=== PATIENT | male | born 1965 | race Caucasian/White ===

== ENCOUNTER 2016-11-23 14:46 | Emergency (ER) | payer OTHER ==
[2016-11-23 15:12] VITALS: BP 128/70; PULSE 67; TEMP 98.6; BMI 25.9
--- NOTE | 2016-11-23 16:37 | PDOC ---
History of Present Illness - General Chief Complaint: Injury Stated Complaint: FALL/ RT LEG PAIN Time Seen by Provider: 11/23/16 16:29 History Source: Patient Exam Limitations: No Limitations - History of Present Illness Initial Comments: 11/23/16 17:10 My chief complaint: Fall into a hole at work yesterday right knee pain right ankle and left elbow abrasion History of present illness: Patient is a 51-year-old male with a history of non- insulin-dependent diabetes, here today complaining of right knee pain since falling into a hole at work yesterday. Patient reports is difficult to walk due to pain pain is currently a 10 on applying any pressure on his knee. Patient has minimal tenderness to his right ankle with a tiny abrasion and an abrasion to his left elbow. Patient denies any pain of his left elbow. Patient is unsure of his tetanus status. Patient denies any other injuries. Occurred: reports: yesterday Severity: reports: severe (right knee) Pain Location: reports: lower extremity (rt. knee ), upper extremity (left elbow abrasion, rt. medial ankle abrasion ) Method of Injury: Yes: fall Modifying Factors: improves with: immobilization Loss of Consciousness: no loss of consciousness Associated Symptoms (Fall): trouble walking Past History - Past Medical History Allergies/Adverse Reactions: Allergies Allergy/AdvReac Type Severity Reaction Status Date / Time No Known Allergies Allergy Verified 11/23/16 15:08 Home Medications: Ambulatory Orders Naproxen [Naprosyn -] 500 mg PO BID PRN #14 tablet 11/23/16 Diabetes: Yes - Surgical History Appendectomy: Yes - Immunization History Immunization Up to Date: Yes - Suicide/Smoking/Psychosocial Hx Smoking History: Never smoked Hx Alcohol Use: No Drug/Substance Use Hx: No Review of Systems - Review of Systems Able to Perform ROS?: Yes Constitutional: No: Symptoms Reported HEENTM: No: Symptoms Reported Respiratory: No: Symptoms reported Cardiac (ROS): No: Symptoms Reported ABD/GI: No: Symptoms Reported : No: Symptoms Reported Musculoskeletal: Yes: Joint Pain (right knee severe, rt. ankle minimal) Integumentary: Yes: Other (left elbow abrasion, rt. medial ankle ) Neurological: No: Symptoms reported *Physical Exam - Vital Signs Last Vital Signs Temp Pulse Resp BP Pulse Ox 98.6 F 67 18 128/70 100 11/23/16 14:50 11/23/16 14:50 11/23/16 14:50 11/23/16 14:50 11/23/16 14:50 - Physical Exam General Appearance: Yes: Appropriately Dressed Respiratory/Chest: positive: Lungs Clear, Normal Breath Sounds. negative: Chest Tender, Respiratory Distress Cardiovascular: positive: Regular Rhythm, Regular Rate, S1, S2 Vascular Pulses: Dorsalis-Pedis (R): 4+, Doralis-Pedis (L): 4+ Comments:: 11/23/16 17:07 radial pulse 4 + left Extremity: positive: Normal Capillary Refill, Normal Inspection, Normal Range of Motion (right ), Tender (rt. knee, negative anterior/posterior drawer, negative rt. ciaran). negative: Swelling (rt. knee, rt. ankle, foot ) Integumentary: positive: Other (abrasion left elbow quarter size, pea size rt. medial ankle ) Neurologic: positive: Normal Response, Respond to painful stimul Procedures - Consent Consent obtained: From Patient - Splinting Pre-Made Type: knee immobilizer (right) Post-Proc Neuro Vasc Exam: normal Complications: No Medical Decision Making - Medical Decision Making 11/23/16 17:12 Patient is a 51-year-old male with a history of egi-vfouilj-xkjrxnlre diabetes , here today complaining of right knee pain since falling into a hole at work yesterday. Patient reports is difficult to walk due to pain pain is currently a 10 on applying any pressure on his knee. Patient has minimal tenderness to his right ankle with a tiny abrasion and an abrasion to his left elbow. Patient denies any pain of his left elbow. Patient is unsure of his tetanus status. Patient denies any other injuries. Fall Right knee pain severe rt. ankle mild pain left elbow abrasion rt. medial ankle abrasion PLAN: xray rt. knee TDAP 0.5 ML IM cleansed the right ankle/left elbow with Betadine and normal saline tiny amount of bacitracin applied and Band-Aid ibuprofen 600 mg po now rt. knee immoblilzer crutches ortho consult 11/23/16 18:24 Naprosyn 500 mg bid prn pain *DC/Admit/Observation/Transfer Diagnosis at time of Disposition: Fall Qualifiers: Encounter type: initial encounter Qualified Code(s): W19.XXXA - Unspecified fall, initial encounter Acute knee pain Qualifiers: Laterality: right Qualified Code(s): M25.561 - Pain in right knee Abrasion of left elbow Qualifiers: Encounter type: initial encounter Qualified Code(s): S50.312A - Abrasion of left elbow, initial encounter Abrasion of right ankle Qualifiers: Encounter type: initial encounter Qualified Code(s): S90.511A - Abrasion, right ankle, initial encounter - Discharge Dispostion Disposition: HOME Condition at time of disposition: Stable - Prescriptions Prescriptions: Naproxen [Naprosyn -] 500 mg PO BID PRN #14 tablet PRN Reason: Pain - Referrals Referrals: Andreas Pate MD [Staff Physician] - - Patient Instructions Additional Instructions: Wear knee immobilizer right knee on in the day take off at night and use crutches for ambulation Elevate your right leg as much as possible and apply ice every 2 hours for 20 minutes each time cleanse abrasion on left elbow and right ankle area twice daily with antibacterial soap and water pat dry and apply bacitracin ointment Follow-up with orthopedist tomorrow Patient voiced understanding of discharge instructions and all questions were answered - Post Discharge Activity Forms/Work/School Notes: Back to Work
[2016-11-23] MEDS ORDERED: IBUPROFEN 600 MG TABLET (FP) PO ONE ×2 (17:03→17:06)
[2016-11-23] MEDS ORDERED: DIPHTH,PERTUSS(ACELL),TET 0.5 ML DISP.SYRIN IM ONE (17:09)
== END 2016-11-23 18:44 | disposition home or self-care (01) ==
LOC: JERFT 14:46
PROC: 2W3RX1Z Immobilization of Left Lower Leg using Splint (ICD-10-PCS; principal; 2016-11-23)
DX: S50.312A Abrasion of left elbow, initial encounter (principal); S90.511A Abrasion, right ankle, initial encounter; M25.561 Pain in right knee; W17.89XA Other fall from one level to another, initial encounter; Y93.89 Activity, other specified; Y92.9 Unspecified place or not applicable; Y99.0 Civilian activity done for income or pay
CPT/HCPCS: 73562-TC-RT; 90715; 99281-25

== ENCOUNTER 2018-03-10 00:48 | Emergency (ER) | payer OTHER ==
[2018-03-10] MEDS ORDERED: ACETAMINOPHEN 1000 MG/100 ML VIAL (NON FORMULARY) IVPB ONE (02:00)
[2018-03-10] MEDS ORDERED: SODIUM CHLORIDE 1,000 ML IV STA (02:00)
--- NOTE | 2018-03-10 02:00 | PDOC ---
History of Present Illness - General Chief Complaint: Pain, Acute Stated Complaint: ABDOMINAL PAIN Time Seen by Provider: 03/10/18 01:31 History Source: Patient Exam Limitations: No Limitations Past History - Travel Traveled outside of the country in the last 30 days: No Close contact w/someone who was outside of country & ill: No - Past Medical History Allergies/Adverse Reactions: Allergies Allergy/AdvReac Type Severity Reaction Status Date / Time No Known Allergies Allergy Verified 03/10/18 01:38 Home Medications: Ambulatory Orders Naproxen [Naprosyn -] 500 mg PO BID PRN #14 tablet 11/23/16 Cyclobenzaprine HCl [Flexeril -] 10 mg PO HS #10 tablet 03/10/18 traMADol HCL [Ultram -] 50 mg PO BID #10 tablet MDD 2 03/10/18 Diabetes: Yes - Surgical History Appendectomy: Yes - Immunization History Immunization Up to Date: Yes - Suicide/Smoking/Psychosocial Hx Smoking History: Never smoked Hx Alcohol Use: No Drug/Substance Use Hx: No Review of Systems - Review of Systems Able to Perform ROS?: Yes Comments:: 03/10/18 01:57 CONSTITUTIONAL: Absent: fever, chills, diaphoresis, generalized weakness, malaise, loss of appetite HEENT: Absent: rhinorrhea, nasal congestion, throat pain, throat swelling, difficulty swallowing, mouth swelling, ear pain, eye pain, visual Changes CARDIOVASCULAR: Absent: chest pain, loss of consciousness, palpitations, irregular heart rate, peripheral edema RESPIRATORY: Absent: cough, shortness of breath, dyspnea with exertion, orthopnea, wheezing, stridor, hemoptysis GASTROINTESTINAL: Absent: abdominal pain, abdominal distension, nausea, vomiting, diarrhea, constipation, melena, hematochezia GENITOURINARY: Absent: dysuria, frequency, urgency, hesitancy, hematuria, flank pain, genital pain MUSCULOSKELETAL: Absent: myalgia, arthralgia, joint swelling SKIN: Absent: rash, itching, pallor HEMATOLOGIC/IMMUNOLOGIC: Absent: easy bleeding, easy bruising, lymphadenopathy, frequent infections ENDOCRINE: Absent: unexplained weight gain, unexplained weight loss, heat intolerance, cold intolerance NEUROLOGIC: Absent: headache, focal weakness or paresthesias, dizziness, unsteady gait, seizure, mental status changes, bladder or bowel incontinence PSYCHIATRIC: Absent: anxiety, depression, suicidal or homicidal ideation, hallucinations. Is the patient limited [place]ian proficient: No *Physical Exam - Physical Exam Comments: 03/10/18 01:57 GENERAL: Well developed, well nourished. Awake and alert. No acute distress. HEENT: Normocephalic, atraumatic. PERRLA, EOMI. No conjunctival pallor. Sclera are non- icteric. Moist mucous membranes. Oropharynx is clear. NECK: Supple. Full ROM. No JVD. Carotid pulses 2+ and symmetric, without bruits. No thyromegaly. No lymphadenopathy. CARDIOVASCULAR: Regular rate and rhythm. No murmurs, rubs, or gallops. Distal pulses are 2+ and symmetric. PULMONARY: No evidence of respiratory distress. Lungs clear to auscultation bilaterally. No wheezing, rales or rhonchi. ABDOMINAL: Soft. Non-tender. Non-distended. No rebound or guarding. No organomegaly. Normoactive bowel sounds. MUSCULOSKELETAL Normal range of motion at all joints. No bony deformities or tenderness. No CVA tenderness. EXTREMITIES: No cyanosis. No clubbing. No edema. No calf tenderness. SKIN: Warm and dry. Normal capillary refill. No rashes. No jaundice. NEUROLOGICAL: Alert, awake, appropriate. Cranial nerves 2-12 intact. No deficits to light touch and temperature in face, upper extremities and lower extremities. No motor deficits in the in face, upper extremities and lower extremities. Normoreflexic in the upper and lower extremities. Normal speech. Toes are down- going bilaterally. Gait is normal without ataxia. PSYCHIATRIC: Cooperative. Good eye contact. Appropriate mood and affect. ED Treatment Course - LABORATORY CBC & Chemistry Diagram: 03/10/18 01:56 03/10/18 01:56 *DC/Admit/Observation/Transfer Diagnosis at time of Disposition: Abdominal pain Qualifiers: Abdominal location: right lower quadrant Qualified Code(s): R10.31 - Right lower quadrant pain - Discharge Dispostion Disposition: HOME Condition at time of disposition: Stable Decision to Admit order: No - Prescriptions Prescriptions: Cyclobenzaprine HCl [Flexeril -] 10 mg PO HS #10 tablet traMADol HCL [Ultram -] 50 mg PO BID #10 tablet MDD 2 - Referrals Referrals: Bautista Rucker MD [Staff Physician] - - Patient Instructions Printed Discharge Instructions: DI for Abdominal Pain-Adult Additional Instructions: You were evaluated for your abdominal pain today Your CT scan was negative for an acute finding. You were given a copy of the report Take the tramadol twice a day for pain. Do not drive after taking this medication as it may make you sleepy Take the flexeril at night before bed. this is a muscle relaxer. Do not drive after taking this medication as it may make you sleepy. Drink plenty of fluids Follow up with your primary care doctor in 24-28 hours Return to the ED for fever, worsening pain, vomiting, pain with urination, or if you have any changes in your symptoms - Post Discharge Activity Forms/Work/School Notes: Back to Work
[2018-03-10 02:02] VITALS: TEMP 97.7; BMI 26.2
[2018-03-10 02:12] LABS: BASO % 0.6 % (0-2.0); EOS % 2.4 % (0-4.5); HEMATOCRIT 36.5 % (35.4-49); HEMOGLOBIN 12.8 GM/dL (11.7-16.9); LYMPH % 33.8 % (8-40); MCH 29.7 pg (25.7-33.7); MCHC 35.1 g/dl (32.0-35.9); MEAN CELL VOLUME 84.7 fl (80-96); MEAN PLT VOLUME 8.9 fl (7.5-11.1); MONO % 6.3 % (3.8-10.2); NEUT % 56.9 % (42.8-82.8); PLATELET COUNT 253 K/MM3 (134-434); RBC 4.31 M/mm3 (4.00-5.60); RDW 13.8 % (11.9-15.9)
[2018-03-10] MEDS ORDERED: ACETAMINOPHEN INJECTION 100 ML IVPB ONE (02:20)
[2018-03-10 02:27] LABS: INR 0.96 (0.83-1.09); PROTHROMBIN TIME (PATIENT) 11.3 SEC (9.7-13.0)
[2018-03-10 02:35] LABS: ALBUMIN 4.1 g/dl (3.4-5.0); ALK PHOS 47 U/L (45-117); ANION GAP 8 MMOL/L (8-16); BILIRUBIN,TOTAL 0.5 mg/dL (0.2-1); BLOOD UREA NITROGEN 14 mg/dL (7-18); CALCIUM 9.3 mg/dL (8.5-10.1); CHLORIDE 101 mmol/L (98-107); CO2 28 mmol/L (21-32); CREATININE 0.9 mg/dL (0.55-1.3); GLUCOSE,RANDOM 192 mg/dL (74-106); SGOT/AST 25 U/L (15-37); SGPT/ALT 61 U/L (13-61); SODIUM 137 mmol/L (136-145); TOT PROT 7.4 g/dl (6.4-8.2)
[2018-03-10 02:54] LABS: URINE APPEARANCE CLEAR; URINE BILIRUBIN NEGATIVE (<2.0 mg/dL); URINE COLOR YELLOW; URINE GLUCOSE (UA) 3+ (NEGATIVE); URINE KETONE NEGATIVE (NEGATIVE); URINE LEUK ESTERASE NEGATIVE (NEGATIVE); URINE NITRITE NEGATIVE (NEGATIVE); URINE PROTEIN NEGATIVE (NEGATIVE)
[2018-03-10] MEDS ORDERED: KETOROLAC TROMETHAMINE 15 MG/ML VIAL IVPUSH ONE (04:17)
[2018-03-10] MEDS ORDERED: KETOROLAC TROMETHAMINE 15 MG/ML VIAL ONE (05:01)
[2018-03-10 06:01] VITALS: BP 136/87; PULSE 70
--- NOTE | 2018-03-10 08:40 | EKG ---
Test Reason : Blood Pressure : / mmHG Vent. Rate : 060 BPM Atrial Rate : 060 BPM P-R Int : 166 ms QRS Dur : 090 ms QT Int : 408 ms P-R-T Axes : 014 -16 023 degrees QTc Int : 408 ms NORMAL SINUS RHYTHM POSSIBLE ANTERIOR INFARCT , AGE UNDETERMINED ABNORMAL ECG NO PREVIOUS ECGS AVAILABLE Confirmed by KAVIN DELONG, HYACINTH ([id number]) on 03/10/2018 8:39:56 AM Referred By: Confirmed By:HYACINTH VALE MD
== END 2018-03-10 06:01 | disposition home or self-care (01) ==
LOC: JER 00:48
PROC: 3E033NZ Introduction of Analgesics, Hypnotics, Sedatives into Peripheral Vein, Percutaneous Approach (ICD-10-PCS; principal; 2018-03-10)
PROC: 3E0333Z Introduction of Anti-inflammatory into Peripheral Vein, Percutaneous Approach (ICD-10-PCS; 2018-03-10)
DX: R10.31 Right lower quadrant pain (principal)
CPT/HCPCS: 36415; 74177-TC; 80053; 81003; 83605; 85025; 85610; 87086; 93005; 93010; 96374; 96375; 99283-25; J0131; J7030

== ENCOUNTER 2020-08-21 13:15 | Emergency (ER) | payer OTHER ==
[2020-08-21 13:58] VITALS: TEMP 97.7; BMI 26.6
[2020-08-21] MEDS ORDERED: ACETAMINOPHEN 325 MG TABLET (FP) PO ONE (14:23)
[2020-08-21] MEDS ORDERED: ACETAMINOPHEN 325 MG TABLET (FP) ONE (15:15)
[2020-08-21 15:39] LABS: BASO % 0.5 % (0-2.0); EOS % 2.1 % (0-4.5); HEMATOCRIT 35.7 % (35.4-49); HEMOGLOBIN 12.6 GM/dL (11.7-16.9); LYMPH % 29.1 % (8-40); MCH 29.7 pg (25.7-33.7); MCHC 35.4 g/dl (32.0-35.9); MEAN CELL VOLUME 83.9 fl (80-96); MEAN PLT VOLUME 7.9 fl (7.5-11.1); MONO % 6.5 % (3.8-10.2); NEUT % 61.8 % (42.8-82.8); PLATELET COUNT 195 10^3/uL (134-434); RBC 4.25 M/mm3 (4.00-5.60)
[2020-08-21 16:01] LABS: CHLORIDE 104 mmol/L (98-107); SODIUM 139 mmol/L (136-145)
[2020-08-21 16:03] LABS: ALBUMIN 3.7 g/dl (3.4-5.0); ANION GAP 8 MMOL/L (8-16); CALCIUM 8.9 mg/dL (8.5-10.1); CO2 27 mmol/L (21-32); GLUCOSE,RANDOM 175 mg/dL (74-106)
[2020-08-21 16:06] LABS: CREATININE 0.8 mg/dL (0.55-1.3); SGOT/AST 27 U/L (15-37); SGPT/ALT 47 U/L (13-61)
[2020-08-21 16:08] LABS: BILIRUBIN,TOTAL 0.7 mg/dL (0.2-1); TOT PROT 6.8 g/dl (6.4-8.2)
[2020-08-21 16:09] LABS: ALK PHOS 57 U/L (45-117)
[2020-08-21 19:12] VITALS: PULSE 68
[2020-08-21 19:55] VITALS: BP 122/76
== END 2020-08-21 19:56 | disposition home or self-care (01) ==
LOC: JER 13:15
DX: M25.512 Pain in left shoulder (principal)
CPT/HCPCS: 36415; 71046-TC-FY; 71260-TC; 73000-TC-LT-FY; 80053; 84484; 85025; 93005; 93010; 99285-25; Q9967

== ENCOUNTER 2022-12-17 22:07 | Emergency (ER) | payer OTHER ==
[2022-12-17 22:20] VITALS: BP 128/84; PULSE 87; RESP 18; TEMP 97.7; BMI 27.4
[2022-12-17] MEDS ORDERED: KETOROLAC TROMETHAMINE 30 MG/1 ML VIAL IM ONE (23:28)
[2022-12-17] MEDS ORDERED: LIDOCAINE 5% TOPICAL PATCH TP ONE (23:29)
[2022-12-17] MEDS ORDERED: ACETAMINOPHEN 500 MG TABLET (FP) PO ONE (23:29)
[2022-12-17] MEDS ORDERED: ONDANSETRON *ODT* 4 MG TABLET SL ONE (23:37)
[2022-12-17] MEDS ORDERED: KETOROLAC TROMETHAMINE 30 MG/1 ML VIAL ONE (23:56)
[2022-12-17] MEDS ORDERED: ACETAMINOPHEN 325 MG TABLET (FP) ONE (23:56)
[2022-12-17] MEDS ORDERED: ONDANSETRON *ODT* 4 MG TABLET ONE (23:56)
[2022-12-17] MEDS ORDERED: LIDOCAINE 4% PATCH TP ONE (23:57)
[2022-12-18 00:27] LABS: BASO % 0.5 % (0-2.0); EOS % 2.1 % (0-4.5); HEMATOCRIT 36.4 % (35.4-49); LYMPH % 29.2 % (8-40); MCH 29.6 pg (25.7-33.7); MCHC 35.8 g/dl (32.0-35.9); MEAN CELL VOLUME 82.8 fl (80-96); MEAN PLT VOLUME 8.6 fl (7.5-11.1); MONO % 5.2 % (3.8-10.2); PLATELET COUNT 259 10^3/uL (134-434); WHITE BLOOD COUNT 6.8 K/mm3 (4.0-10.0)
[2022-12-18 00:34] LABS: INR 0.97 (0.83-1.09); PROTHROMBIN TIME (PATIENT) 11.2 SEC (9.7-13.0)
[2022-12-18 00:36] LABS: ACTIVATED PTT 29.5 SECONDS (25.2-36.5)
[2022-12-18 00:46] LABS: POTASSIUM 4.8 mmol/L (3.5-5.1)
[2022-12-18 00:48] LABS: ALBUMIN 3.9 g/dl (3.4-5.0); BLOOD UREA NITROGEN 12.4 mg/dL (7-18); CALCIUM 8.6 mg/dL (8.5-10.1)
[2022-12-18 00:51] LABS: CREATININE 1.1 mg/dL (0.55-1.3)
[2022-12-18 00:53] LABS: BILIRUBIN,TOTAL 0.6 mg/dL (0.2-1); TOT PROT 7.1 g/dl (6.4-8.2)
[2022-12-18] MEDS ORDERED: LIDOCAINE PATCH REMOVAL MC ONE (12:00)
== END 2022-12-18 01:59 | disposition home or self-care (01) ==
LOC: JER 22:07
PROC: 3E023GC Introduction of Other Therapeutic Substance into Muscle, Percutaneous Approach (ICD-10-PCS; principal; 2022-12-18)
DX: R07.89 Other chest pain (principal); S29.011A Strain of muscle and tendon of front wall of thorax, initial encounter; R11.0 Nausea; M54.50 Low back pain, unspecified; M54.2 Cervicalgia; V49.40XA Driver injured in collision with unspecified motor vehicles in traffic accident, initial encounter; Y93.I9 Activity, other involving external motion
CPT/HCPCS: 36415; 70450-TC; 71046-TC-FY; 80053; 84484; 85025; 85610; 85730; 93005; 93010; 99285-25; Q0162